=== PATIENT | male | born 1995 | race African-American/Black ===

== ENCOUNTER 2018-04-27 11:13 | Emergency (ER) | payer SELFPAY ==
[~2018-04-27] VITALS: Ht 195.6 cm; Wt 81.0 kg
[2018-04-27 11:23] VITALS: BP 139/77
[2018-04-27] MEDS ORDERED: PROPARACAINE OPHTH 0.5%, 15ML ONE (11:34)
--- NOTE | 2018-04-27 11:40 | NUR ---
DR LOZOYA AT BEDSIDE. PT ASSESSMENT REV AND ORDERS REC'D
--- NOTE | 2018-04-27 11:55 | NUR ---
Patient/Caregiver given discharge instructions and they have confirmed that they understand the instructions. Patient ambulatory with steady gait.
== END 2018-04-27 12:01 | disposition home or self-care (01) ==
LOC: ED 11:55
DX: H00.025 Hordeolum internum left lower eyelid (principal)
CPT/HCPCS: 99283

== ENCOUNTER 2019-10-03 17:13 | Emergency (ER) | payer MEDICAID, OTHER ==
[~2019-10-03] VITALS: Ht 195.6 cm; Wt 78.9 kg
[2019-10-03 17:22] VITALS: BP 132/77
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
--- NOTE | 2019-10-03 18:57 | NUR ---
REPORT FROM JOSE BEEBE.
--- NOTE | 2019-10-03 19:01 | NUR ---
Provided report to CONCEPCIÓN Mora. All questions answered. CONCEPCIÓN Mora to assume care of pt. Pt away at CT at this time.
[2019-10-03] MEDS ORDERED: KETAMINE 10 MG/ML, 20ML ONE (19:58)
[2019-10-03] MEDS ORDERED: SODIUM CHLORIDE FLUSH 10ML SYR IVF ONE (20:00)
[2019-10-03] MEDS ORDERED: KETAMINE 10 MG/ML, 20ML IV ONE (20:00)
--- NOTE | 2019-10-03 21:09 | NUR ---
PT AWAKE AND TALKING AFTER PROCEDURE, CURRENTLY SPEAKING TO REGISTRATION STAFF. VSS.
== END 2019-10-03 22:29 | disposition home or self-care (01) ==
LOC: ED 17:43
DX: S62.314A Displaced fracture of base of fourth metacarpal bone, right hand, initial encounter for closed fracture (principal); X58.XXXA Exposure to other specified factors, initial encounter; Y93.89 Activity, other specified; Y92.69 Other specified industrial and construction area as the place of occurrence of the external cause; Y99.8 Other external cause status
CPT/HCPCS: 26605; 99285